=== PATIENT | female | born 1955 | race Caucasian/White ===

== ENCOUNTER → 2016-10-15 | Outpatient (CLI) | payer BC | LOC: FIMAGING 09:02 | PROVIDERS: ATTEND Family Medicine | DX: J98.4 Other disorders of lung (principal); R06.09 Other forms of dyspnea; I08.0 Rheumatic disorders of both mitral and aortic valves; Q23.1 Congenital insufficiency of aortic valve ==

== ENCOUNTER → 2016-11-05 | Outpatient (CLI) | payer BC | LOC: FIMAGING 08:28 | PROVIDERS: ATTEND Family Medicine | DX: Z12.31 Encounter for screening mammogram for malignant neoplasm of breast (principal) | CPT/HCPCS: G0202 ==

== ENCOUNTER → 2018-08-02 | Outpatient (CLI) | payer OTHER | LOC: BHLMT 16:15 | PROVIDERS: ATTEND Internal Medicine Cardiovascular Disease | DX: I35.0 Nonrheumatic aortic (valve) stenosis (principal) | CPT/HCPCS: 93306-PO ==

== ENCOUNTER → 2018-08-24 | Outpatient (CLI) | payer OTHER | LOC: FIMAGING 14:44 | PROVIDERS: ATTEND Registered Nurse | DX: M79.89 Other specified soft tissue disorders (principal); M79.674 Pain in right toe(s); M20.11 Hallux valgus (acquired), right foot; M19.071 Primary osteoarthritis, right ankle and foot ==

== ENCOUNTER → 2018-09-10 | Outpatient (CLI) | payer OTHER | LOC: FIMAGING 09:26 | PROVIDERS: ATTEND Thoracic Surgery (Cardiothoracic Vascular Surgery) | DX: I77.819 Aortic ectasia, unspecified site (principal); R91.1 Solitary pulmonary nodule; R93.422 Abnormal radiologic findings on diagnostic imaging of left kidney; D35.00 Benign neoplasm of unspecified adrenal gland ==